=== PATIENT | female | born 1955 | race Caucasian/White ===

== ENCOUNTER 2019-04-25 06:41 | Day surgery (SDC) | payer OTHER ==
[~2019-04-25] VITALS: Ht 165.1 cm; Wt 99.2 kg
[~2019-04-25 06:41] MED LIST: CYCL10 PO; HYDR1TAB94 PO; METO100ER PO
[2019-04-25] MEDS ORDERED: Loratadine10 MG PO (07:37)
[2019-04-25] MEDS ORDERED: AMLO5 PO (07:37)
[2019-04-25] MEDS ORDERED: LOVA40 PO (07:37)
[2019-04-25] MEDS ORDERED: SERT50 PO (07:38)
[2019-04-25] MEDS ORDERED: ALBU2.5V5 INH (07:38)
== END 2019-04-25 09:27 | disposition home or self-care (01) ==
LOC: ORSCSDS 06:41
PROVIDERS: Internal Medicine Gastroenterology
PROC: 0DBK8ZX Excision of Ascending Colon, Via Natural or Artificial Opening Endoscopic, Diagnostic (ICD-10-PCS; principal; 2019-04-25 08:30)
PROC: 0DBN8ZX Excision of Sigmoid Colon, Via Natural or Artificial Opening Endoscopic, Diagnostic (ICD-10-PCS; principal; 2019-04-25 08:30)
DX: Z12.11 Encounter for screening for malignant neoplasm of colon (principal); D12.2 Benign neoplasm of ascending colon; K63.5 Polyp of colon; K57.30 Diverticulosis of large intestine without perforation or abscess without bleeding; I10 Essential (primary) hypertension; Z87.891 Personal history of nicotine dependence; Z79.899 Other long term (current) drug therapy
CPT/HCPCS: 88305; J2405; J2704; J7120

== ENCOUNTER 2021-12-26 12:04 | Emergency (ER) | payer OTHER ==
[~2021-12-26] VITALS: Ht 165.1 cm; Wt 104.3 kg
[~2021-12-26 12:04] MED LIST changes: +ALBU2.5V5 INH; +AMLO5 PO; +LOVA40 PO; +Loratadine10 MG PO; +SERT50 PO
[2021-12-26] MEDS ORDERED: TOPICAINE113 GM TOP (13:58)
== END 2021-12-26 14:10 | disposition home or self-care (01) ==
LOC: ER 12:04
DX: S80.02XA Contusion of left knee, initial encounter (principal); M17.12 Unilateral primary osteoarthritis, left knee; I10 Essential (primary) hypertension; Z79.899 Other long term (current) drug therapy; Z88.5 Allergy status to narcotic agent; Z88.8 Allergy status to other drugs, medicaments and biological substances; Z87.891 Personal history of nicotine dependence; W01.0XXA Fall on same level from slipping, tripping and stumbling without subsequent striking against object, initial encounter
CPT/HCPCS: 73562-LT

== ENCOUNTER → 2022-09-24 | Outpatient (CLI) | payer OTHER ==
[~2022-09-24] MED LIST changes: +TOPICAINE113 GM TOP
== END | disposition home or self-care (01) ==
LOC: LAB 13:04 → LAB SHORT 13:04
DX: S90.551A Superficial foreign body, right ankle, initial encounter (principal)
CPT/HCPCS: 88300

== ENCOUNTER → 2022-10-07 | Outpatient (CLI) | payer OTHER | END | disposition home or self-care (01) | LOC: LAB SHORT 15:00 → LAB 15:00 | DX: S91.001D Unspecified open wound, right ankle, subsequent encounter (principal) | CPT/HCPCS: 87070; 87075; 87205 ==